=== PATIENT | female | born 1930 | race Caucasian/White ===

== ENCOUNTER → 2016-06-07 | Outpatient (CLI) | payer OTHER, BC | END | disposition home or self-care (01) | LOC: C.LABSPEC 12:41 | PROVIDERS: ATTEND Nurse Practitioner | DX: R41.82 Altered mental status, unspecified (principal) ==

== ENCOUNTER → 2016-06-07 | Outpatient (CLI) | payer OTHER, BC ==
[2016-06-07 12:45] LABS: BASO % 0.9 %; BASO ABS # 0.07 K/uL (0-0.2); COMPLETE YES; EOS % 3.5 %; HEMATOCRIT 44.7 % (37-47); IG% 0.2 %; LYMPH % 33.8 %; LYMPH ABS # 2.72 K/uL (1.2-3.4); MEAN CELL VOLUME 84.8 fL (80-100); MEAN CORPUSCULAR HEMOGLOBIN 28.7 pg (25-34); MEAN CORPUSCULAR HGB CONC 33.8 g/dl (32-36); MEAN PLATELET VOLUME 9.9 fL (7.4-10.4); MONO % 6.1 %; NEUT % 55.5 %; PLATELET COUNT 228 K/uL (130-400); RED BLOOD COUNT 5.27 M/uL (4.2-5.4); WHITE BLOOD COUNT 8.04 K/uL (4.8-10.8)
[2016-06-07 12:46] LABS: ESTIMATED AVERAGE GLUCOSE 157 mg/dl; HA1C FLAG Normal (Normal)
[2016-06-07 13:05] LABS: ALT/SGPT 28 U/L (12-78); BLOOD UREA NITROGEN 15 mg/dl (7-18); BUN/CREATININE RATIO 17.9 (10-20); CALCIUM 9.1 mg/dl (8.5-10.1); CARBON DIOXIDE 29 mmol/L (21-32); CHLORIDE 104 mmol/L (98-107); CHOLESTEROL 223 mg/dl (0-200); CREATININE 0.85 mg/dl (0.60-1.20); GLUCOSE 123 mg/dl (70-99); POTASSIUM 4.3 mmol/L (3.5-5.1); SODIUM 139 mmol/L (136-145); TRIGLYCERIDES 126 mg/dl (0-150); VERY LOW DENSITY LIPOPROT CALC 25 mg/dl
[2016-06-07 13:08] LABS: ALKALINE PHOSPHATASE 72 U/L (45-117); AST/SGOT 23 U/L (15-37); CHOLESTEROL/HDL RATIO 3.2; HDL CHOLESTEROL 69 mg/dl; LDL CHOLESTEROL CALCULATED 129 mg/dl
== END | disposition home or self-care (01) ==
LOC: C.LABBFT 10:03
PROVIDERS: ATTEND Nurse Practitioner
DX: I10 Essential (primary) hypertension (principal); E11.9 Type 2 diabetes mellitus without complications; R26.89 Other abnormalities of gait and mobility; R41.82 Altered mental status, unspecified

== ENCOUNTER → 2016-06-08 | Outpatient (CLI) | payer OTHER, BC ==
[~2016-06-08] MED LIST: OPTIRAY 320 IV PRN
--- NOTE | 2016-06-08 15:34 | DIAGNOSTIC IMAGING REPORT ---
CT ANGIOGRAPHY HEAD COMBO CLINICAL HISTORY: Cerebrovascular ischemia. Headaches and dizziness. TECHNIQUE: Axial images of the head were obtained before and after intravenous administration of 93 cc of Optiray 320 IV. Arterial phase imaging was performed. Sagittal and coronal reconstructions were viewed as well as maximal intensity projections on an independent 3-D workstation. COMPARISON STUDY: None. FINDINGS: No acute intracranial hemorrhage, midline shift or mass effect is present. Ventricular system is normal for age. Basilar cisterns are patent. There are no extra-axial collections. Extensive white matter hypodensity suggests small vessel disease. There are no findings to suggest acute dural sinus thrombosis or acute territorial infarct. There is mild mucosal thickening of the maxilla sinuses. There are minimal secretions within the right maxillary sinus as well as the left frontal and sphenoid sinuses. Mastoid air cells are clear. There are no significant calvarial abnormalities. The bilateral M1, M2, A1 and A2 segments are patent. There is moderate atherosclerotic plaque within bilateral cavernous carotids without significant stenosis. No intracranial aneurysm is identified. The right vertebral artery is dominant. 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 Otherwise, the posterior circulation is intact. IMPRESSION: 1. No acute intracranial hemorrhage or mass effect. 2. Extensive white matter hypodensities which likely reflect small vessel disease. 3. 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 Dominant, patent distal right vertebral artery. Otherwise, no vessel occlusion within the intracranial circulation. No intracranial aneurysm. Electronically signed by: Jacob Cobos M.D. 06/08/2016 3:32 PM Dictated Date/Time: 06/08/2016 3:22 PM
--- NOTE | 2016-06-08 15:34 | DIAGNOSTIC IMAGING REPORT ---
CT angiography ANGIOGRAPHY NECK COMBO CLINICAL HISTORY: Mental status change headache TECHNIQUE: Transaxial acquisition with multi axial reformatted images COMPARISON STUDY: None FINDINGS: Moderate atelectatic change at the level of the aortic arch. No significant and/or major stenotic process of the major vasculature. 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 There is a superimposed high-grade stenosis at its distal aspect proximal to the basilar. The carotid systems demonstrate moderate plaque formation bilaterally at the bifurcations. No significant stenosis is appreciated. IMPRESSION: 1. Moderate plaque formation of the bifurcations with no significant stenotic process. 2. 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 06/08/2016 3:33 PM Dictated Date/Time: 06/08/2016 3:26 PM
== END | disposition home or self-care (01) ==
LOC: C.CTS 14:28
PROVIDERS: ATTEND Nurse Practitioner
DX: G45.9 Transient cerebral ischemic attack, unspecified (principal); R26.89 Other abnormalities of gait and mobility